=== PATIENT | male | born 1960 | race African-American/Black ===

== ENCOUNTER 2018-03-04 03:58 | Emergency (ER) | payer BC | END 2018-03-04 05:44 | LOC: ERS 03:58 | DX: F10.129 Alcohol abuse with intoxication, unspecified (principal); J45.909 Unspecified asthma, uncomplicated; Z87.891 Personal history of nicotine dependence | CPT/HCPCS: 99283 ==

== ENCOUNTER 2020-11-09 09:17 | Inpatient (IN) | payer BC ==
[2020-11-09] MEDS ORDERED: Acetaminophen 500 MG TAB ONE (09:56)
[2020-11-09 10:15] LABS: ALT (SGPT) 126 U/L (8-55); AST (SGOT) 268 U/L (5-34); Alkaline Phosphatase 125 U/L (40-110); Anion Gap 14 mmol/L (10-20); BUN (Urea Nitrogen) 10 mg/dL (8.4-25.7); Bilirubin, Total 1.1 mg/dL (0.2-1.2); Calc. Creatinine Clearance 0 mL/min (70-130); Calcium 9.1 mg/dL (7.8-10.44); Carbon Dioxide 28 mmol/L (22-29); Chloride 90 mmol/L (98-107); Globulin 4.3 g/dL (2.4-3.5); Glucose 150 mg/dL (70-105); Potassium 3.9 mmol/L (3.5-5.1); Protein, Total 8.3 g/dL (6.0-8.3); Sodium 128 mmol/L (136-145)
[2020-11-09 10:50] LABS: #Lymphocytes 0.7 thou/uL (1.20-3.40); #Monocytes 0.6 thou/uL (0.11-0.59); #Neutrophils 10.2 thou/uL (1.40-6.50); %Eosinophils 0.1 % (0.0-10.0); %Monocytes 5.4 % (0.0-10.0); %Neutrophils 88.5 % (42.0-75.0); Band 5 % (5-11); Hemoglobin 16.2 g/dL (14.0-18.0); Lymphocytes 4 % (21-51); MDiff Complete? YES; Mean Corpuscular HGB CONC 32.8 g/dL (32.0-36.0); Mean Corpuscular Hemoglobin 30.6 pg (27.0-31.0); Mean Corpuscular Volume 93.4 fL (78.0-98.0); Mean Platelet Volume 9.1 fL (7.4-10.4); Monocytes 6 % (0-10); Neutrophil 84 % (42-75); Platelet Count 103 thou/uL (130-400); Platelet Morphology Comment Appears Decreased; Polychromasia MODERATE = 3-4 cells (100X) (0-2/hpf); RBC Distribution Width 12.7 % (11.5-14.5); Reactive Lymphocytes 1 % (0-10); Red Blood Cell (RBC) Count 5.29 mill/uL (4.70-6.10); White Blood Cell (WBC) Count 11.5 thou/uL (4.8-10.8)
[2020-11-09] MEDS ORDERED: Iopamidol-370 76% 500 ML 1 ML ONE (11:00)
[2020-11-09 14:17] LABS: SARS-CoV-2 PCR by NAA DETECTED (NotDetected)
[2020-11-09] MEDS ORDERED: Ondansetron PF 4 MG/2 ML Vial IVP PRN (15:10)
[2020-11-09] MEDS ORDERED: Ondansetron ODT 4 MG TAB PO PRN (15:10)
[2020-11-09] MEDS ORDERED: Guaifenesin DM 100-10/5 ML UDCUP PO PRN (15:10)
[2020-11-09] MEDS ORDERED: Acetaminophen 650 MG Suppository PR PRN (15:10)
[2020-11-09] MEDS ORDERED: Enoxaparin Sodium 40 MG/0.4 ML SYRINGE SC SCH (15:15)
[2020-11-09] MEDS ORDERED: Albuterol 200 PUFF (6.7GM INHALER) INH PRN (15:24)
[2020-11-09] MEDS: Acetaminophen 325 MG TAB PO PRN (16:12)
[2020-11-09] MEDS ORDERED: Acetaminophen 325 MG TAB ONE (16:13)
[2020-11-09 16:14] LABS: INR-International Normal Ratio 1.1; Phosphorus 2.9 mg/dL (2.3-4.7)
[2020-11-09 16:15] LABS: CRP (Inflammatory) 17.24 mg/dL (= or < 0.5); Magnesium 1.8 mg/dL (1.6-2.6); PTT 46.8 sec (22.9-36.1)
[2020-11-09 17:31] LABS: Alcohol Less than 10 mg/dL (Less than 10); Anion Gap 13 mmol/L (10-20); BUN (Urea Nitrogen) 8 mg/dL (8.4-25.7); Calc. Creatinine Clearance 0 mL/min (70-130); Calcium 8.3 mg/dL (7.8-10.44); Carbon Dioxide 24 mmol/L (22-29); Chloride 102 mmol/L (98-107); Glucose 120 mg/dL (70-105); Potassium 4.1 mmol/L (3.5-5.1); Sodium 135 mmol/L (136-145)
[2020-11-09] MEDS ORDERED: Azithromycin 500 MG VIAL ONE (17:32)
[2020-11-09] MEDS ORDERED: cefTRIAXone\\ROCEPHIN 1 GM VIAL ONE (17:33)
[2020-11-09] MEDS ORDERED: Enoxaparin Sodium 40 MG/0.4 ML SYRINGE ONE (17:33)
[2020-11-09] MEDS ORDERED: methylPREDNISolone Sod Succ 40 MG VIAL ONE (17:33)
[2020-11-09] MEDS ORDERED: Magnesium 2 GM/50 ML 2 GM in Premix Bag 1 BAG IVPB SCH ×2 (17:45)
[2020-11-09] MEDS: cefTRIAXone\\ROCEPHIN 1 GM in Sodium Chloride 0.9% 100 ML IVPB SCH (17:50)
[2020-11-09] MEDS: methylPREDNISolone Sod Succ 40 MG VIAL IVP SCH (17:58)
[2020-11-09 18:07] LABS: HBCM Index 0.06 S/CO (0-0.79); HBSAg Index 0.19 S/CO (0-0.99); Hep A IgM AB Non-Reactive (NonReactive); Hep A IgM S/CO 0.22 S/CO (0-0.79); Hep B Surf Ag Non-Reactive S/CO (NonReactive); Hep C IgG Ab Non-Reactive (NonReactive); Hep C Index 0.25 S/CO (0-0.79); Hepatitis B Core IgM Abs Non-Reactive (NonReactive); Thyroid Stimulating Hormone 0.3577 uIU/mL (0.35-4.94)
[2020-11-09] MEDS: Azithromycin 500 MG in Sodium Chloride 0.9% 250 ML 250 ML IVPB SCH (19:00)
[2020-11-09] MEDS ORDERED: Magnesium 2 GM/50 ML BAG (IN WATER) ONE (19:04)
[2020-11-09 23:21] VITALS: BMI 20.3
[2020-11-09 23:55] LABS: Sodium 138 mmol/L (136-145)
[2020-11-10] MEDS: methylPREDNISolone Sod Succ 40 MG VIAL IVP SCH ×4 (00:50→18:07)
[2020-11-10] MEDS: Albuterol 200 PUFF (6.7GM INHALER) INH SCH ×6 (03:40→21:27)
[2020-11-10 05:21] LABS: #Lymphocytes 0.6 thou/uL (1.20-3.40); #Monocytes 0.5 thou/uL (0.11-0.59); #Neutrophils 11.7 thou/uL (1.40-6.50); %Basophils 0.1 % (0.0-1.0); %Eosinophils 0.1 % (0.0-10.0); %Lymphocytes 4.8 % (21.0-51.0); %Monocytes 3.6 % (0.0-10.0); %Neutrophils 91.4 % (42.0-75.0); Hemoglobin 15.6 g/dL (14.0-18.0); Mean Corpuscular HGB CONC 33.6 g/dL (32.0-36.0); Mean Corpuscular Hemoglobin 31.4 pg (27.0-31.0); Mean Corpuscular Volume 93.6 fL (78.0-98.0); Mean Platelet Volume 9.6 fL (7.4-10.4); Platelet Count 102 thou/uL (130-400); Red Blood Cell (RBC) Count 4.95 mill/uL (4.70-6.10); White Blood Cell (WBC) Count 12.7 thou/uL (4.8-10.8)
[2020-11-10 05:46] LABS: Anion Gap 13 mmol/L (10-20); BUN (Urea Nitrogen) 9 mg/dL (8.4-25.7); Calc. Creatinine Clearance 90 mL/min (70-130); Calcium 8.7 mg/dL (7.8-10.44); Carbon Dioxide 24 mmol/L (22-29); Chloride 103 mmol/L (98-107); Glucose 144 mg/dL (70-105); Potassium 3.7 mmol/L (3.5-5.1); Sodium 136 mmol/L (136-145)
[2020-11-10 05:48] LABS: ALT (SGPT) 116 U/L (8-55); AST (SGOT) 221 U/L (5-34); Albumin 3.5 g/dL (3.5-5.0); Alkaline Phosphatase 106 U/L (40-110); Bilirubin, Direct 0.4 mg/dL (0.1-0.3); Bilirubin, Total 0.7 mg/dL (0.2-1.2); Protein, Total 7.3 g/dL (6.0-8.3); Sodium 135 mmol/L (136-145)
[2020-11-10] MEDS ORDERED: Dextrose 5% in Water 1,000 ML IV PRN (07:26)
[2020-11-10] MEDS ORDERED: Dextrose 50% Abboject 50 ML SYRINGE SLOW IVP PRN (07:26)
[2020-11-10] MEDS ORDERED: Dexamethasone 4 MG TAB PO SCH (08:00)
[2020-11-10] MEDS: Thiamine 100 MG TAB PO SCH (09:15)
[2020-11-10] MEDS: Enoxaparin Sodium 40 MG/0.4 ML SYRINGE SC SCH (09:16)
[2020-11-10] MEDS: Acetaminophen 325 MG TAB PO PRN (09:28)
[2020-11-10 10:34] LABS: Sodium 135 mmol/L (136-145)
[2020-11-10] MEDS ORDERED: Diphenoxylate HCl/Atropine Tablet PO PRN (13:44)
[2020-11-10] MEDS: cefTRIAXone\\ROCEPHIN 1 GM in Sodium Chloride 0.9% 100 ML IVPB SCH (16:25)
[2020-11-10 16:46] LABS: Sodium 135 mmol/L (136-145)
[2020-11-10] MEDS: Azithromycin 500 MG in Sodium Chloride 0.9% 250 ML 250 ML IVPB SCH (18:06)
[2020-11-10] MEDS: HumaLOG 300 UNITS/3 ML VIAL SC PRN (18:15)
[2020-11-11] MEDS: methylPREDNISolone Sod Succ 40 MG VIAL IVP SCH ×4 (00:59→17:18)
[2020-11-11] MEDS: Albuterol 200 PUFF (6.7GM INHALER) INH SCH ×6 (03:00→21:30)
[2020-11-11 07:06] LABS: #Lymphocytes 0.8 thou/uL (1.20-3.40); #Monocytes 0.8 thou/uL (0.11-0.59); #Neutrophils 10.7 thou/uL (1.40-6.50); %Basophils 0.2 % (0.0-1.0); %Eosinophils 0.1 % (0.0-10.0); %Lymphocytes 6.6 % (21.0-51.0); %Monocytes 6.1 % (0.0-10.0); %Neutrophils 87.1 % (42.0-75.0); Hemoglobin 15.1 g/dL (14.0-18.0); Mean Corpuscular HGB CONC 33.1 g/dL (32.0-36.0); Mean Corpuscular Hemoglobin 31.5 pg (27.0-31.0); Mean Corpuscular Volume 94.9 fL (78.0-98.0); Mean Platelet Volume 9.7 fL (7.4-10.4); Platelet Count 114 thou/uL (130-400); RBC Distribution Width 13.1 % (11.5-14.5); White Blood Cell (WBC) Count 12.3 thou/uL (4.8-10.8)
[2020-11-11 07:10] LABS: Anion Gap 11 mmol/L (10-20); BUN (Urea Nitrogen) 13 mg/dL (8.4-25.7); Calc. Creatinine Clearance 95 mL/min (70-130); Calcium 8.9 mg/dL (7.8-10.44); Carbon Dioxide 29 mmol/L (22-29); Chloride 100 mmol/L (98-107); Glucose 134 mg/dL (70-105); Potassium 3.8 mmol/L (3.5-5.1); Sodium 136 mmol/L (136-145)
[2020-11-11] MEDS: Enoxaparin Sodium 40 MG/0.4 ML SYRINGE SC SCH (08:18)
[2020-11-11] MEDS: Thiamine 100 MG TAB PO SCH (08:18)
[2020-11-11] MEDS: HumaLOG 300 UNITS/3 ML VIAL SC PRN (11:33)
[2020-11-11] MEDS: cefTRIAXone\\ROCEPHIN 1 GM in Sodium Chloride 0.9% 100 ML IVPB SCH (15:10)
[2020-11-11] MEDS: Azithromycin 500 MG in Sodium Chloride 0.9% 250 ML 250 ML IVPB SCH (17:18)
[2020-11-12] MEDS: methylPREDNISolone Sod Succ 40 MG VIAL IVP SCH ×3 (00:46→11:12)
[2020-11-12] MEDS: Albuterol 200 PUFF (6.7GM INHALER) INH SCH ×6 (02:59→23:45)
[2020-11-12 06:40] LABS: Anion Gap 10 mmol/L (10-20); BUN (Urea Nitrogen) 13 mg/dL (8.4-25.7); CRP (Inflammatory) 3.31 mg/dL (= or < 0.5); Calc. Creatinine Clearance 98 mL/min (70-130); Calcium 8.8 mg/dL (7.8-10.44); Carbon Dioxide 28 mmol/L (22-29); Chloride 101 mmol/L (98-107); Glucose 130 mg/dL (70-105); Potassium 3.9 mmol/L (3.5-5.1); Sodium 135 mmol/L (136-145)
[2020-11-12] MEDS: Enoxaparin Sodium 40 MG/0.4 ML SYRINGE SC SCH (08:05)
[2020-11-12] MEDS: Thiamine 100 MG TAB PO SCH (08:05)
[2020-11-12] MEDS: Cefdinir 300 MG CAP PO SCH (20:13)
[2020-11-13] MEDS: Albuterol 200 PUFF (6.7GM INHALER) INH SCH ×6 (03:47→21:20)
[2020-11-13 06:54] LABS: Anion Gap 10 mmol/L (10-20); BUN (Urea Nitrogen) 12 mg/dL (8.4-25.7); Calc. Creatinine Clearance 92 mL/min (70-130); Calcium 8.7 mg/dL (7.8-10.44); Carbon Dioxide 27 mmol/L (22-29); Chloride 101 mmol/L (98-107); Glucose 102 mg/dL (70-105); Potassium 3.5 mmol/L (3.5-5.1); Sodium 134 mmol/L (136-145)
[2020-11-13] MEDS: predniSONE 20 MG TAB PO SCH (08:14)
[2020-11-13] MEDS: Thiamine 100 MG TAB PO SCH (08:16)
[2020-11-13] MEDS: Enoxaparin Sodium 40 MG/0.4 ML SYRINGE SC SCH (08:16)
[2020-11-13] MEDS: Cefdinir 300 MG CAP PO SCH ×2 (08:16→21:20)
[2020-11-13] MEDS: Acetaminophen 325 MG TAB PO PRN (08:23)
[2020-11-14] MEDS: Albuterol 200 PUFF (6.7GM INHALER) INH SCH ×6 (02:36→23:40)
[2020-11-14] MEDS: Cefdinir 300 MG CAP PO SCH ×2 (07:55→20:35)
[2020-11-14] MEDS: Thiamine 100 MG TAB PO SCH (07:55)
[2020-11-14] MEDS: Enoxaparin Sodium 40 MG/0.4 ML SYRINGE SC SCH (07:55)
[2020-11-14] MEDS: predniSONE 20 MG TAB PO SCH (07:55)
[2020-11-14 07:59] LABS: Anion Gap 7 mmol/L (10-20); BUN (Urea Nitrogen) 14 mg/dL (8.4-25.7); Calc. Creatinine Clearance 88 mL/min (70-130); Calcium 8.9 mg/dL (7.8-10.44); Carbon Dioxide 32 mmol/L (22-29); Chloride 99 mmol/L (98-107); Glucose 114 mg/dL (70-105); Potassium 3.3 mmol/L (3.5-5.1); Sodium 135 mmol/L (136-145)
[2020-11-14] MEDS: Acetaminophen 325 MG TAB PO PRN (20:35)
[2020-11-15] MEDS: Albuterol 200 PUFF (6.7GM INHALER) INH SCH ×6 (03:30→21:41)
[2020-11-15 07:38] LABS: #Basophils 0.1 thou/uL (0.0-0.2); #Eosinphils 0.1 thou/uL (0.0-0.7); #Lymphocytes 1.8 thou/uL (1.20-3.40); #Monocytes 1.1 thou/uL (0.11-0.59); #Neutrophils 5.3 thou/uL (1.40-6.50); %Basophils 0.7 % (0.0-1.0); %Eosinophils 1.4 % (0.0-10.0); %Lymphocytes 21.3 % (21.0-51.0); %Monocytes 13.2 % (0.0-10.0); %Neutrophils 63.5 % (42.0-75.0); Hemoglobin 15.5 g/dL (14.0-18.0); Mean Corpuscular HGB CONC 34.5 g/dL (32.0-36.0); Mean Corpuscular Hemoglobin 32.7 pg (27.0-31.0); Mean Corpuscular Volume 94.9 fL (78.0-98.0); Mean Platelet Volume 8.9 fL (7.4-10.4); Platelet Count 306 thou/uL (130-400); RBC Distribution Width 13.4 % (11.5-14.5); Red Blood Cell (RBC) Count 4.74 mill/uL (4.70-6.10); White Blood Cell (WBC) Count 8.4 thou/uL (4.8-10.8)
[2020-11-15 07:53] LABS: ALT (SGPT) 203 U/L (8-55); AST (SGOT) 136 U/L (5-34); Alkaline Phosphatase 145 U/L (40-110); Anion Gap 9 mmol/L (10-20); BUN (Urea Nitrogen) 13 mg/dL (8.4-25.7); CRP (Inflammatory) 6.24 mg/dL (= or < 0.5); Calc. Creatinine Clearance 100 mL/min (70-130); Calcium 8.9 mg/dL (7.8-10.44); Carbon Dioxide 30 mmol/L (22-29); Chloride 99 mmol/L (98-107); Globulin 3.9 g/dL (2.4-3.5); Glucose 94 mg/dL (70-105); Potassium 3.2 mmol/L (3.5-5.1); Protein, Total 6.9 g/dL (6.0-8.3); Sodium 135 mmol/L (136-145)
[2020-11-15] MEDS: predniSONE 20 MG TAB PO SCH (08:48)
[2020-11-15] MEDS: Enoxaparin Sodium 40 MG/0.4 ML SYRINGE SC SCH (08:48)
[2020-11-15] MEDS: Cefdinir 300 MG CAP PO SCH ×2 (08:48→21:41)
[2020-11-15] MEDS: Thiamine 100 MG TAB PO SCH (08:48)
[2020-11-15] MEDS: Potassium Chloride 20 MEQ TAB PO SCH ×2 (13:13→17:52)
[2020-11-15] MEDS: GUAIFENESIN DM SF 5 ML UDCUP PO PRN (22:29)
[2020-11-16] MEDS: Albuterol 200 PUFF (6.7GM INHALER) INH SCH ×6 (02:50→22:35)
[2020-11-16] MEDS: GUAIFENESIN DM SF 5 ML UDCUP PO PRN (05:29)
[2020-11-16 06:18] LABS: #Basophils 0.1 thou/uL (0.0-0.2); #Eosinphils 0.2 thou/uL (0.0-0.7); #Lymphocytes 1.8 thou/uL (1.20-3.40); #Neutrophils 5.7 thou/uL (1.40-6.50); %Basophils 0.7 % (0.0-1.0); %Eosinophils 1.8 % (0.0-10.0); %Monocytes 11.1 % (0.0-10.0); %Neutrophils 65.5 % (42.0-75.0); Hemoglobin 15.1 g/dL (14.0-18.0); Mean Corpuscular HGB CONC 32.2 g/dL (32.0-36.0); Mean Corpuscular Hemoglobin 30.2 pg (27.0-31.0); Mean Corpuscular Volume 94.1 fL (78.0-98.0); Mean Platelet Volume 8.4 fL (7.4-10.4); Platelet Count 420 thou/uL (130-400); RBC Distribution Width 13.2 % (11.5-14.5); Red Blood Cell (RBC) Count 4.99 mill/uL (4.70-6.10); White Blood Cell (WBC) Count 8.7 thou/uL (4.8-10.8)
[2020-11-16 06:25] LABS: Anion Gap 11 mmol/L (10-20); BUN (Urea Nitrogen) 12 mg/dL (8.4-25.7); Calc. Creatinine Clearance 97 mL/min (70-130); Calcium 9.3 mg/dL (7.8-10.44); Carbon Dioxide 26 mmol/L (22-29); Chloride 103 mmol/L (98-107); Glucose 97 mg/dL (70-105); Sodium 136 mmol/L (136-145)
[2020-11-16] MEDS ORDERED: Benzonatate 100 MG CAP PO PRN (07:19)
[2020-11-16] MEDS ORDERED: Calcium Carbonate 500 MG ChewTAB PO PRN (07:19)
[2020-11-16] MEDS ORDERED: Sodium Chloride 0.65% Nasal 44 ML BOT EA NARE PRN (07:19)
[2020-11-16] MEDS ORDERED: Loratadine 10 MG TAB PO PRN (07:19)
[2020-11-16] MEDS ORDERED: HYDROcodone/Acetaminophen 5/325 mg Tablet PO PRN (07:19)
[2020-11-16] MEDS ORDERED: Artificial Tear Sol 15 ML BOT EA EYE PRN (07:19)
[2020-11-16] MEDS ORDERED: Hydrocerin (Eucerin) Cream 120 gm Jar TOP PRN (07:19)
[2020-11-16] MEDS ORDERED: Zolpidem Tartrate 5 MG TAB PO PRN (07:19)
[2020-11-16] MEDS ORDERED: hydrALAZINE 20 MG/ML VIAL SLOW IVP PRN (07:19)
[2020-11-16] MEDS ORDERED: Cepastat Lozenges 1 LOZ PO PRN (07:19)
[2020-11-16] MEDS ORDERED: GUAIFENESIN SF SOLN 200 MG/10 ML UDCUP PO PRN (07:19)
[2020-11-16] MEDS: predniSONE 20 MG TAB PO SCH (09:23)
[2020-11-16] MEDS: Cefdinir 300 MG CAP PO SCH ×2 (09:23→20:38)
[2020-11-16] MEDS: Enoxaparin Sodium 40 MG/0.4 ML SYRINGE SC SCH (09:24)
[2020-11-16] MEDS: Thiamine 100 MG TAB PO SCH (09:24)
[2020-11-17] MEDS: Albuterol 200 PUFF (6.7GM INHALER) INH SCH ×5 (03:05→13:37)
[2020-11-17 07:26] VITALS: TEMP 98.5
[2020-11-17] MEDS: predniSONE 20 MG TAB PO SCH (08:19)
[2020-11-17] MEDS: Cefdinir 300 MG CAP PO SCH (08:19)
[2020-11-17] MEDS: Thiamine 100 MG TAB PO SCH (08:19)
[2020-11-17] MEDS: Enoxaparin Sodium 40 MG/0.4 ML SYRINGE SC SCH (08:19)
[2020-11-17 09:02] VITALS: BP 108/70
[2020-11-17] MEDS: GUAIFENESIN DM SF 5 ML UDCUP PO PRN (10:42)
== END 2020-11-17 14:52 | disposition home or self-care (01) | DRG 871 ==
LOC: ERS 09:17 → ERHOLD 15:01 → 2SW 23:22 → OBSVTOIN 11-10 07:27 → T4-B 11-10 23:28
PROVIDERS: ADMIT Internal Medicine; ATTEND Internal Medicine
PROC: 8E0ZXY6 Isolation (ICD-10-PCS; principal; 2020-11-10)
DX: A41.89 Other specified sepsis (principal); U07.1 COVID-19; J12.82 Pneumonia due to coronavirus disease 2019; J96.01 Acute respiratory failure with hypoxia; J18.9 Pneumonia, unspecified organism; J44.1 Chronic obstructive pulmonary disease with (acute) exacerbation; E87.1 Hypo-osmolality and hyponatremia; I10 Essential (primary) hypertension; E78.5 Hyperlipidemia, unspecified; R16.0 Hepatomegaly, not elsewhere classified; R74.01 Elevation of levels of liver transaminase levels; R91.1 Solitary pulmonary nodule; D69.6 Thrombocytopenia, unspecified; J44.9 Chronic obstructive pulmonary disease, unspecified; Z87.891 Personal history of nicotine dependence; Z99.81 Dependence on supplemental oxygen; Z71.6 Tobacco abuse counseling
CPT/HCPCS: 36415; 36416; 71045; 71275; 80048; 80053; 80074; 80076; 80307; 82728; 83735; 83880; 83930; 83935; 84100; 84145; 84300; 84443; 84560; 85025; 85610; 85730; 86140; 93005; 94760; 96372; 96374; 96375; 96376; G0378; J0456; J0696; J1650; J1815; J2920; J3475; J3490; J7050; J7512; Q9967; U0003; U0005